=== PATIENT | male | born 1990 | race African-American/Black ===

== ENCOUNTER 2019-05-26 | Outpatient (CLI) | payer OTHER | END 2019-05-26 00:01 | disposition critical access hospital (66) | LOC: EMS | PROVIDERS: ATTEND Surgery | DX: S01.01XA Laceration without foreign body of scalp, initial encounter (principal); V49.9XXA Car occupant (driver) (passenger) injured in unspecified traffic accident, initial encounter; Y92.410 Unspecified street and highway as the place of occurrence of the external cause | CPT/HCPCS: A0425; A0429 ==

== ENCOUNTER 2019-05-26 00:20 | Emergency (ER) | payer OTHER ==
[2019-05-26] MEDS ORDERED: IBUPROFEN 600 MG TABLET PO STA (00:29)
[2019-05-26] MEDS ORDERED: LIDOCAINE-EPINEPH-TETRACAINE 3 ML SYRINGE TOP STA (00:29)
[2019-05-26] MEDS ORDERED: ACETAMINOPHEN 325 MG TABLET PO STA (00:29)
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
[2019-05-26 01:19] VITALS: BP 111/87
== END 2019-05-26 01:21 | disposition home or self-care (01) ==
LOC: ED 00:20
DX: S01.01XA Laceration without foreign body of scalp, initial encounter (principal); S00.03XA Contusion of scalp, initial encounter; S80.211A Abrasion, right knee, initial encounter; S80.212A Abrasion, left knee, initial encounter; V47.5XXA Car driver injured in collision with fixed or stationary object in traffic accident, initial encounter; W22.11XA Striking against or struck by driver side automobile airbag, initial encounter
CPT/HCPCS: 12001; 36415; 70450; 99282; 99284; A9270

== ENCOUNTER 2024-02-02 12:00 | Emergency (ER) | payer OTHER ==
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
[2024-02-02 13:57] VITALS: BP 126/78; O2SAT 100
== END 2024-02-02 13:54 | disposition home or self-care (01) ==
LOC: ED 12:00
DX: S06.9X9A Unspecified intracranial injury with loss of consciousness of unspecified duration, initial encounter (principal); S00.03XA Contusion of scalp, initial encounter; V49.50XA Passenger injured in collision with unspecified motor vehicles in traffic accident, initial encounter
CPT/HCPCS: 99283; 99284